=== PATIENT | male | born 1965 | race Caucasian/White ===

== ENCOUNTER 2021-04-16 17:15 | Emergency (ER) | payer MEDICAID ==
[~2021-04-16] VITALS: Ht 180.3 cm; Wt 117.9 kg
[2021-04-16] MEDS ORDERED: ASPirin-EC 81 mg tab PO ONE (18:45)
[2021-04-16 18:46] VITALS: BP 122/66
== END 2021-04-16 19:16 | disposition left against medical advice (07) ==
LOC: ER 17:15
DX: R07.89 Other chest pain (principal); Z53.21 Procedure and treatment not carried out due to patient leaving prior to being seen by health care provider
CPT/HCPCS: 71045; 93005

== ENCOUNTER 2021-07-24 05:31 | Emergency (ER) | payer MEDICAID ==
[~2021-07-24] VITALS: Ht 180.3 cm; Wt 104.3 kg
[2021-07-24] MEDS ORDERED: KETOROLAC TROMETH 60MG/2ML VIAL IM ONE (08:15)
[2021-07-24 08:24] VITALS: BP 110/94
== END 2021-07-24 08:39 | disposition home or self-care (01) ==
LOC: ER 05:31
DX: G89.29 Other chronic pain (principal); M54.50 Low back pain, unspecified
CPT/HCPCS: 96372; 99283; J1885

== ENCOUNTER 2023-03-24 16:12 | Emergency (ER) | payer MEDICAID ==
[~2023-03-24] VITALS: Ht 180.3 cm; Wt 87.9 kg
[2023-03-24 16:39] VITALS: BP 156/98
[2023-03-24 17:21] VITALS: PULSE 100; RESP 20; O2SAT 100
[2023-03-24] MEDS ORDERED: KETOROLAC TROMETH 60MG/2ML VIAL IM ONE (17:30)
[2023-03-24] MEDS ORDERED: HYDROcodone-ACET 10/325MG TAB PO ONE (17:30)
[2023-03-24] MEDS ORDERED: PRED20TA2 PO (17:58)
[2023-03-24] MEDS ORDERED: IBUP-1456 PO (17:58)
== END 2023-03-24 17:52 | disposition home or self-care (01) ==
LOC: ER 16:12
DX: G89.29 Other chronic pain (principal); M54.50 Low back pain, unspecified; Z79.1 Long term (current) use of non-steroidal anti-inflammatories (NSAID); Z79.899 Other long term (current) drug therapy
CPT/HCPCS: 96372; 99283; J1885